=== PATIENT | male | born 1960 | race Two or more races ===

== ENCOUNTER 2024-08-15 08:20 | Inpatient (IN) | payer MEDICARE, OTHER ==
[~2024-08-15] VITALS: Ht 157.5 cm; Wt 68.9 kg
[2024-08-15 09:08] LABS: BASOPHILS # (AUTO) 0.1 K/uL (0.0-0.2); BASOPHILS % (AUTO) 1.3 % (0.0-2.0); EOSINOPHILS # (AUTO) 0.2 K/uL (0.0-0.7); EOSINOPHILS % (AUTO) 2.9 % (0.0-6.0); HEMATOCRIT 37 % (39-51); HEMOGLOBIN 12.4 g/dL (13.5-17.5); LYMPHOCYTES # (AUTO) 1.8 K/uL (0.8-4.8); LYMPHOCYTES % (AUTO) 29.9 % (20.0-44.0); MEAN CORPUSCULAR HEMOGLOBIN 30 PG (26.0-33.0); MEAN CORPUSCULAR HGB CONC 34 g/dl (31.0-36.0); MEAN CORPUSCULAR VOLUME 90 fL (80-96); MONOCYTES # (AUTO) 0.6 K/uL (0.1-1.30); MONOCYTES % (AUTO) 10.5 % (2.0-12.0); NEUTROPHILS # (AUTO) 3.4 K/uL (1.8-8.9); NEUTROPHILS % (AUTO) 55.4 % (43.0-81.0); PLATELET COUNT (AUTO) 67 K/uL (150-450); RED BLOOD CELL COUNT(AUTO) 4.11 MIL/uL (4.5-6.0); RED CELL DISTRIBUTION WIDTH 16.7 % (11.5-15.0); WHITE BLOOD COUNT (AUTO) 6.1 K/uL (4.3-11.0)
[2024-08-15 09:14] LABS: ALANINE AMINOTRANSFERASE 143 U/L (12-78); ALBUMIN 2.3 g/dL (3.4-5.0); ALCOHOL, BLOOD < 3 mg/dL (0-10); ALKALINE PHOSPHATASE 322 U/L (46-116); ASPARTATE AMINOTRANSFERASE 218 U/L (15-37); BILIRUBIN,DIRECT 1.4 mg/dL (0.0-0.2); BILIRUBIN,TOTAL 2.4 mg/dL (0.2-1.0); CALCIUM, SERUM 8.7 mg/dL (8.5-10.1); CARBON DIOXIDE 26 mmol/L (21-32); CHLORIDE 103 mmol/L (98-107); CREATININE 1.2 mg/dL (0.6-1.3); GLUCOSE 87 mg/dL (74-106); POTASSIUM 4.2 mmol/L (3.5-5.1); SODIUM SERUM 132 mmol/L (136-145); UREA NITROGEN, BLOOD 40 mg/dL (7-18)
[2024-08-15] MEDS ORDERED: diphenhydrAMINE HCL 50 MG/ML VIAL ONE (09:20)
[2024-08-15] MEDS: diphenhydrAMINE HCL 50 MG/ML VIAL IV ONE (09:27)
[2024-08-15 09:30] LABS: INR 1.34 (0.91-1.10); PARTIAL THROMBOPLASTIN TIME 28.9 SEC (24.3-34.3); PROTHROMBIN TIME 13.9 SECS (9.2-11.1)
[2024-08-15 09:54] LABS: ACETAMINOPHEN <10 ug/ml (10-30); SALICYLATE < 2.8 mg/dL (2.8-20.0)
[2024-08-15] MEDS: IV NS 0.9% 1,000 ML BAG IV ONE (11:00)
[2024-08-15 11:22] LABS: EOSINOPHILS % (MANUAL) 4 % (0-4); LYMPHOCYTES % (MANUAL) 36 % (16-48); MONOCYTES % (MANUAL) 10 % (0-11.0); NEUTROPHILS % (MANUAL) 50 (42-76); PLATELET ESTIMATE DECREASED
[2024-08-15 11:23] LABS: ANISOCYTOSIS 1+
[2024-08-15] MEDS ORDERED: hydrALAZINE HCL IV 20 MG VIAL IV PRN ×2 (12:30→18:30)
[2024-08-15 18:21] LABS: AMPHETAMINE, URINE NEGATIVE (NEGATIVE); BARBITURATE, URINE NEGATIVE (NEGATIVE); BENZODIAZEPINE, URINE NEGATIVE (NEGATIVE); CANNABINOID, URINE NEGATIVE (NEGATIVE); COCCAINE, URINE NEGATIVE (NEGATIVE); OPIATE, URINE NEGATIVE (NEGATIVE); PHENCYCLIDINE SCREEN,URINE NEGATIVE (NEGATIVE)
[2024-08-15] MEDS ORDERED: ACETAMINOPHEN 325 MG TABLET PO PRN (18:30)
[2024-08-15] MEDS ORDERED: MORPHINE SULFATE INJ 2 MG/ML DISP.SYRIN IV PRN (18:30)
[2024-08-15] MEDS ORDERED: ONDANSETRON HCL/PF 4 MG/2 ML VIAL IVP PRN (18:30)
[2024-08-15] MEDS: IV NS 0.9% 1,000 ML IV SCH (18:51)
[2024-08-15 20:00] VITALS: BP 125/85; TEMP 97.9; O2SAT 98
[2024-08-15] MEDS: HEPARIN SODIUM, PORCINE 5000 UNITS/1 ML VIAL SQ SCH (21:00)
[2024-08-16 01:38] LABS: SERUM AMMONIA 125 umol/L (11-32)
[2024-08-16 04:00] VITALS: BP 124/70; TEMP 98.1; O2SAT 98
[2024-08-16 07:36] LABS: ALBUMIN 1.8 g/dL (3.4-5.0); BILIRUBIN,TOTAL 2.5 mg/dL (0.2-1.0); CREATININE 0.7 mg/dL (0.6-1.3); MAGNESIUM 2.3 mg/dL (1.8-2.4); PHOSPHORUS 2.4 mg/dL (2.5-4.9); POTASSIUM 4.1 mmol/L (3.5-5.1); TOTAL PROTEIN, SERUM 6.5 g/dL (6.4-8.2)
[2024-08-16 07:38] LABS: BASOPHILS # (AUTO) 0.1 K/uL (0.0-0.2); BASOPHILS % (AUTO) 3.6 % (0.0-2.0); EOSINOPHILS # (AUTO) 0.1 K/uL (0.0-0.7); EOSINOPHILS % (AUTO) 4.1 % (0.0-6.0); HEMATOCRIT 32 % (39-51); MEAN CORPUSCULAR HEMOGLOBIN 30 PG (26.0-33.0); MEAN CORPUSCULAR HGB CONC 34 g/dl (31.0-36.0); MEAN CORPUSCULAR VOLUME 88 fL (80-96); MONOCYTES # (AUTO) 0.3 K/uL (0.1-1.30); MONOCYTES % (AUTO) 9.3 % (2.0-12.0); NEUTROPHILS # (AUTO) 1.6 K/uL (1.8-8.9); RED BLOOD CELL COUNT(AUTO) 3.65 MIL/uL (4.5-6.0); RED CELL DISTRIBUTION WIDTH 16.4 % (11.5-15.0); WHITE BLOOD COUNT (AUTO) 3.2 K/uL (4.3-11.0)
[2024-08-16 07:42] LABS: PLATELET COUNT (AUTO) 45 K/uL (150-450)
[2024-08-16 08:00] VITALS: BP 119/75; TEMP 97.9; O2SAT 99
[2024-08-16] MEDS: POLYETHYLENE GLYCOL 3350 17 GM POWD.PACK PO SCH (10:29)
[2024-08-16] MEDS: DOCUSATE SODIUM LIQ 100 MG/10 ML UDC PO SCH (10:29)
[2024-08-16] MEDS: LACTULOSE 10 G/15 ML UDC (PYXIS) PO SCH (10:30)
[2024-08-16] MEDS: RIFAXIMIN 550 MG TABLET PO SCH (10:30)
[2024-08-16 10:54] LABS: EOSINOPHILS % (MANUAL) 3 % (0-4); LYMPHOCYTES % (MANUAL) 26 % (16-48); MONOCYTES % (MANUAL) 8 % (0-11.0); NEUTROPHILS % (MANUAL) 63 (42-76); PLATELET ESTIMATE DECREASED
[2024-08-16 10:55] LABS: ANISOCYTOSIS 1+; HYPOCHROMASIA 1+
[2024-08-16 16:00] VITALS: BP 113/85; TEMP 98.4; O2SAT 100
[2024-08-16] MEDS: K PHOS NEUTRAL 250 MG TABLET PO ONE (17:50)
[2024-08-16 20:00] VITALS: BP 120/80; TEMP 97.9; O2SAT 100
[2024-08-17 04:00] VITALS: BP 124/69; TEMP 98.1; O2SAT 99
[2024-08-17 08:00] VITALS: BP 124/69; TEMP 98.1; O2SAT 99
[2024-08-17 09:10] LABS: BASOPHILS % (AUTO) 1.2 % (0.0-2.0); EOSINOPHILS # (AUTO) 0.1 K/uL (0.0-0.7); EOSINOPHILS % (AUTO) 3.7 % (0.0-6.0); HEMATOCRIT 34 % (39-51); HEMOGLOBIN 11.3 g/dL (13.5-17.5); LYMPHOCYTES # (AUTO) 1.3 K/uL (0.8-4.8); LYMPHOCYTES % (AUTO) 36.2 % (20.0-44.0); MEAN CORPUSCULAR HEMOGLOBIN 30 PG (26.0-33.0); MEAN CORPUSCULAR HGB CONC 33 g/dl (31.0-36.0); MEAN CORPUSCULAR VOLUME 89 fL (80-96); MONOCYTES # (AUTO) 0.4 K/uL (0.1-1.30); MONOCYTES % (AUTO) 10.7 % (2.0-12.0); NEUTROPHILS # (AUTO) 1.7 K/uL (1.8-8.9); NEUTROPHILS % (AUTO) 48.2 % (43.0-81.0); RED BLOOD CELL COUNT(AUTO) 3.82 MIL/uL (4.5-6.0); WHITE BLOOD COUNT (AUTO) 3.6 K/uL (4.3-11.0)
[2024-08-17 09:25] LABS: PLATELET COUNT (AUTO) 47 K/uL (150-450)
[2024-08-17 09:35] LABS: ALBUMIN 1.9 g/dL (3.4-5.0); BILIRUBIN,TOTAL 2.4 mg/dL (0.2-1.0); CALCIUM, SERUM 8.1 mg/dL (8.5-10.1); CREATININE 0.8 mg/dL (0.6-1.3); POTASSIUM 3.7 mmol/L (3.5-5.1); TOTAL PROTEIN, SERUM 6.7 g/dL (6.4-8.2)
[2024-08-17 14:32] LABS: EOSINOPHILS % (MANUAL) 2 % (0-4); LYMPHOCYTES % (MANUAL) 36 % (16-48); MONOCYTES % (MANUAL) 7 % (0-11.0)
[2024-08-17 14:33] LABS: ANISOCYTOSIS 1+; NEUTROPHILS % (MANUAL) 55 (42-76); PLATELET ESTIMATE DECREASED
[2024-08-17 15:43] VITALS: BP 128/73; TEMP 97.7; O2SAT 100
[2024-08-17 16:00] VITALS: BP 128/73; TEMP 97.7; O2SAT 100
[2024-08-17 20:00] VITALS: BP 107/71; TEMP 97.9
[2024-08-18 04:00] VITALS: BP 115/72; TEMP 97.9
[2024-08-18 07:03] LABS: ALBUMIN 1.8 g/dL (3.4-5.0); BILIRUBIN,TOTAL 1.9 mg/dL (0.2-1.0); CALCIUM, SERUM 8.1 mg/dL (8.5-10.1); CREATININE 0.8 mg/dL (0.6-1.3); POTASSIUM 3.9 mmol/L (3.5-5.1); TOTAL PROTEIN, SERUM 6.7 g/dL (6.4-8.2)
[2024-08-18 07:29] LABS: EOSINOPHILS # (AUTO) 0.2 K/uL (0.0-0.7); HEMOGLOBIN 11.6 g/dL (13.5-17.5); LYMPHOCYTES # (AUTO) 1.1 K/uL (0.8-4.8); MONOCYTES # (AUTO) 0.4 K/uL (0.1-1.30); WHITE BLOOD COUNT (AUTO) 3.7 K/uL (4.3-11.0)
[2024-08-18 07:43] LABS: EOSINOPHILS % (AUTO) 4.9 % (0.0-6.0); HEMATOCRIT 34 % (39-51); LYMPHOCYTES % (AUTO) 30.5 % (20.0-44.0); MEAN CORPUSCULAR HEMOGLOBIN 30 PG (26.0-33.0); MEAN CORPUSCULAR HGB CONC 34 g/dl (31.0-36.0); MEAN CORPUSCULAR VOLUME 88 fL (80-96); MONOCYTES % (AUTO) 10.9 % (2.0-12.0); NEUTROPHILS # (AUTO) 1.9 K/uL (1.8-8.9); NEUTROPHILS % (AUTO) 52.7 % (43.0-81.0); RED BLOOD CELL COUNT(AUTO) 3.86 MIL/uL (4.5-6.0); RED CELL DISTRIBUTION WIDTH 16.4 % (11.5-15.0)
[2024-08-18 08:00] VITALS: BP 115/72; TEMP 98.7
[2024-08-18 08:02] LABS: PLATELET COUNT (AUTO) 49 K/uL (150-450)
[2024-08-18 09:39] LABS: EOSINOPHILS % (MANUAL) 2 % (0-4); LYMPHOCYTES % (MANUAL) 25 % (16-48); MONOCYTES % (MANUAL) 6 % (0-11.0); NEUTROPHILS % (MANUAL) 67 (42-76); PLATELET ESTIMATE DECREASED
[2024-08-18 16:00] VITALS: BP 125/74; TEMP 98.6; O2SAT 100
[2024-08-18 20:00] VITALS: BP 94/80; TEMP 97.6; O2SAT 98
[2024-08-19] MEDS: ZOLPIDEM TARTRATE 5 MG TABLET PO PRN (01:01)
[2024-08-19 04:00] VITALS: BP 98/68; TEMP 97.5; O2SAT 98
[2024-08-19 06:52] LABS: CALCIUM, SERUM 8.4 mg/dL (8.5-10.1); CREATININE 0.8 mg/dL (0.6-1.3); POTASSIUM 4.5 mmol/L (3.5-5.1)
[2024-08-19 06:58] LABS: ALBUMIN 1.9 g/dL (3.4-5.0); BILIRUBIN,TOTAL 1.7 mg/dL (0.2-1.0); TOTAL PROTEIN, SERUM 7.1 g/dL (6.4-8.2)
[2024-08-19 07:06] LABS: BASOPHILS # (AUTO) 0.1 K/uL (0.0-0.2); BASOPHILS % (AUTO) 1.2 % (0.0-2.0); EOSINOPHILS # (AUTO) 0.3 K/uL (0.0-0.7); EOSINOPHILS % (AUTO) 4.7 % (0.0-6.0); HEMATOCRIT 36 % (39-51); HEMOGLOBIN 12.1 g/dL (13.5-17.5); LYMPHOCYTES # (AUTO) 1.6 K/uL (0.8-4.8); LYMPHOCYTES % (AUTO) 25.4 % (20.0-44.0); MEAN CORPUSCULAR HEMOGLOBIN 30 PG (26.0-33.0); MEAN CORPUSCULAR HGB CONC 34 g/dl (31.0-36.0); MEAN CORPUSCULAR VOLUME 88 fL (80-96); MONOCYTES # (AUTO) 0.7 K/uL (0.1-1.30); MONOCYTES % (AUTO) 10.8 % (2.0-12.0); NEUTROPHILS # (AUTO) 3.7 K/uL (1.8-8.9); NEUTROPHILS % (AUTO) 57.9 % (43.0-81.0); PLATELET COUNT (AUTO) 64 K/uL (150-450); RED BLOOD CELL COUNT(AUTO) 4.03 MIL/uL (4.5-6.0); RED CELL DISTRIBUTION WIDTH 16.5 % (11.5-15.0); WHITE BLOOD COUNT (AUTO) 6.3 K/uL (4.3-11.0)
[2024-08-19 08:13] VITALS: BP 115/72; TEMP 98.7
[2024-08-19 09:56] LABS: EOSINOPHILS % (MANUAL) 3 % (0-4); LYMPHOCYTES % (MANUAL) 20 % (16-48); MONOCYTES % (MANUAL) 5 % (0-11.0); NEUTROPHILS % (MANUAL) 72 (42-76); PLATELET ESTIMATE DECREASED
[2024-08-19 09:57] LABS: ANISOCYTOSIS 1+
[2024-08-19] MEDS ORDERED: LACT10SO58 PO (11:03)
== END 2024-08-19 11:40 | disposition home or self-care (01) | DRG 441 ==
LOC: ER 08:29 → MEDSG1 16:37
PROVIDERS: ADMIT Internal Medicine; ATTEND Internal Medicine
DX: K76.82 Hepatic encephalopathy (principal); G92.8 Other toxic encephalopathy; D61.818 Other pancytopenia; E72.20 Disorder of urea cycle metabolism, unspecified; E87.1 Hypo-osmolality and hyponatremia; N17.9 Acute kidney failure, unspecified; E86.0 Dehydration; D64.9 Anemia, unspecified; E80.6 Other disorders of bilirubin metabolism; N20.0 Calculus of kidney; R74.01 Elevation of levels of liver transaminase levels; M89.8X9 Other specified disorders of bone, unspecified site; E86.9 Volume depletion, unspecified; K76.0 Fatty (change of) liver, not elsewhere classified; K80.20 Calculus of gallbladder without cholecystitis without obstruction; Z91.199 Patient's noncompliance with other medical treatment and regimen due to unspecified reason
CPT/HCPCS: 36415; 70450-TC; 71045-TC; 76700-TC; 80048-TC; 80053-TC; 80076-TC; 82140-TC; 82962-TC; 83735-TC; 84100-TC; 84439-TC; 84443-TC; 84481; 85025-TC; 85730-TC; A4223; G0378; G0480; J1200; J1644; J7030

== ENCOUNTER 2024-08-27 08:43 | Emergency (ER) | payer MEDICARE, OTHER ==
[~2024-08-27] VITALS: Ht 162.6 cm; Wt 67.8 kg
[~2024-08-27 08:43] MED LIST: LACT10SO58 PO
[2024-08-27] MEDS: LACTULOSE 10 G/15 ML UDC (PYXIS) PO ONE (09:00)
[2024-08-27 09:31] LABS: BASOPHILS % (AUTO) 0.3 % (0.0-2.0); EOSINOPHILS % (AUTO) 0.2 % (0.0-6.0); HEMATOCRIT 37 % (39-51); HEMOGLOBIN 12.7 g/dL (13.5-17.5); LYMPHOCYTES # (AUTO) 0.8 K/uL (0.8-4.8); LYMPHOCYTES % (AUTO) 10.2 % (20.0-44.0); MEAN CORPUSCULAR HEMOGLOBIN 30 PG (26.0-33.0); MEAN CORPUSCULAR HGB CONC 34 g/dl (31.0-36.0); MEAN CORPUSCULAR VOLUME 89 fL (80-96); MONOCYTES # (AUTO) 0.5 K/uL (0.1-1.30); MONOCYTES % (AUTO) 6.5 % (2.0-12.0); NEUTROPHILS # (AUTO) 6.4 K/uL (1.8-8.9); NEUTROPHILS % (AUTO) 82.8 % (43.0-81.0); PLATELET COUNT (AUTO) 54 K/uL (150-450); RED CELL DISTRIBUTION WIDTH 17.2 % (11.5-15.0); WHITE BLOOD COUNT (AUTO) 7.8 K/uL (4.3-11.0)
[2024-08-27 09:41] LABS: CALCIUM, SERUM 8.6 mg/dL (8.5-10.1); CARBON DIOXIDE 24 mmol/L (21-32); CHLORIDE 106 mmol/L (98-107); CREATININE 1.1 mg/dL (0.6-1.3); GLUCOSE 128 mg/dL (74-106); POTASSIUM 4.5 mmol/L (3.5-5.1); SODIUM SERUM 134 mmol/L (136-145); UREA NITROGEN, BLOOD 25 mg/dL (7-18)
[2024-08-27 09:47] LABS: ALANINE AMINOTRANSFERASE 89 U/L (12-78); ALBUMIN 2.3 g/dL (3.4-5.0); ALCOHOL, BLOOD < 3 mg/dL (0-10); ALKALINE PHOSPHATASE 254 U/L (46-116); ASPARTATE AMINOTRANSFERASE 134 U/L (15-37); BILIRUBIN,DIRECT 1.5 mg/dL (0.0-0.2); BILIRUBIN,TOTAL 2.6 mg/dL (0.2-1.0); TOTAL PROTEIN, SERUM 7.7 g/dL (6.4-8.2)
[2024-08-27] MEDS ORDERED: LACTULOSE 10 G/15 ML UDC (PYXIS) ONE ×2 (10:06→10:07)
[2024-08-27 10:12] LABS: ANISOCYTOSIS 1+; LYMPHOCYTES % (MANUAL) 4 % (16-48); MONOCYTES % (MANUAL) 3 % (0-11.0); NEUTROPHILS % (MANUAL) 93 (42-76); PLATELET ESTIMATE DECREASED
[2024-08-27] MEDS ORDERED: LACT10SO58 PO (10:41)
[2024-08-27 14:14] LABS: SERUM AMMONIA 156 umol/L (11-32)
[2024-08-27 14:17] VITALS: BP 124/67; TEMP 98.3; O2SAT 98
== END 2024-08-27 14:17 | disposition home or self-care (01) ==
LOC: ER 08:45
DX: K70.9 Alcoholic liver disease, unspecified (principal); E86.0 Dehydration; E87.1 Hypo-osmolality and hyponatremia
CPT/HCPCS: 36415; 80048-TC; 80076-TC; 82140-TC; 84443-TC; 85025-TC; G0480